=== PATIENT | female | born 2005 | race Caucasian/White ===

== ENCOUNTER 2025-03-22 15:56 | Emergency (ER) | payer BC, SELFPAY ==
[2025-03-22 16:02] VITALS: BP 125/80
[2025-03-22 16:38] LABS: Urine Albumin 3+ (Neg - Trace); Urine Bilirubin 1+ (Negative); Urine Character Cloudy (Clear); Urine Glucose Negative (Negative); Urine Ketone Negative (Negative); Urine Leukocyte 3+ (Negative); Urine Nitrite Positive (Negative); Urine Occult Blood 4+ (Negative); Urine Specific Gravity 1.015 (<1.030); Urine Urobilinogen 2+ (Neg - 1+)
[2025-03-22 16:39] LABS: HCG, Urine Qualitative Screen Negative; Urine Color Orange
[2025-03-22 16:54] LABS: Urine Squamous Cell 16-20 /LPF (Few)
[2025-03-22 16:55] LABS: Urine Bacteria Many (Negative); Urine White Cell >100 /HPF (0-5)
[2025-03-22] MEDS: KEFLEX 500 MG PO (19:52)
[2025-03-22] MEDS: DIFLUCAN 150 MG PO (19:52)
--- NOTE | 2025-03-22 22:34 | ED.GENMED ---
History of Present Illness
General
Chief Complaint: Urinary Symptoms
Source: patient
Exam Limitations: none
Time Seen by Provider: 03/22/25 18:00
Nursing documentation reviewed up to this point in time: agreed with
History of Present Illness
History of Present Illness:
Patient to ED wt complaint of urinary frequency, burning with urination,. Symptoms started this weekend. Denies fever/chills. Brought to ED by mother for eval.
Past History
Past History
ED Past Medical History: None
ED Past Surgical History: None
Review of Systems
Review of Systems
Allergies reviewed?: Yes
All Other Systems: ROS reviewed and negative except as documented in HPI and ROS
Constitutional: Reports no symptoms
EENT: Reports no symptoms
Respiratory: Reports no symptoms
Cardiac: Reports no symptoms
ABD/GI: Reports no symptoms
: Reports dysuria, frequency and urgency
Musculoskeletal: Reports no symptoms
Skin: Reports no symptoms
Neurological: Reports no symptoms
Psychiatric: Reports no symptoms
Phy Exam
General Physical Exam
General Presentation: well appearing and no apparent distress
General age: appears stated age
General Skin: warm and dry
General Habitus: normal
General Mental: alert
Gastrointestinal Exam
Gastrointestinal Exam: normal bowel sounds, non tender, soft, no organomegaly, no pulsatile mass, non distended and no cva tenderness
Musculoskeletal Exam
Musculoskeletal Exam: full ROM and neuro vasc intact
Skin Exam
Skin Exam: normal color, warm/dry and no rash
Psychiatric Exam
Psychiatric Exam: normal mood/affect
Course
Orders/Labs/Results
Orders:
Orders
03/22/25 16:05
Test Result ONCE
03/22/25 16:12
HCG, Urine Qualitative Screen Urgent
Date Specimen was Collected: 03/22/25
Time Specimen was Collected: 16:05
Urinalysis Reflex To Culture Urgent
Date Specimen was Collected: 03/22/25
Time Specimen was Collected: 16:05
Urine Microscopic Reflex Cult Urgent
Urine Culture Urgent
JAMES Source: U
Specimen Description:
Date Specimen was Collected: 03/22/25
Time Specimen was Collected: 16:05
03/22/25 19:32
Lidocaine 2% [Lidocaine Uro-Jet 2%] 1 syringe .ROUTE .[facility]
03/22/25 19:38
Add On- LAB Urgent
Tests Added?: GC/chlamydia urine
Cephalexin Monohydrate [Keflex] 500 mg PO NOW STA
Fluconazole [Diflucan] 150 mg PO NOW STA
03/22/25 19:49
Genital Culture Urgent
JAMES Source: Vagina
Specimen Description:
Date Specimen was Collected: 03/22/25
Time Specimen was Collected: 19:41
Abnormal Lab Results
03/22/25
16:12
Ur Occult Blood Reflex 4+ A
(Negative)
Urine Nitrite (Reflex) Positive A
(Negative)
Urine Bilirubin 1+ A
(Negative)
Urine Urobilinogen 2+ A
(Neg - 1+)
Leukocyte Esterase Rfl 3+ A
(Negative)
Urine RBC 7-10 A /HPF
(0-2)
Urine WBC (Reflex) >100 A /HPF
(0-5)
Urine Bacteria (Reflex) Many A
(Negative)
Urine Albumin (Reflex) 3+ A
(Neg - Trace)
Vital Signs
Initial and Last Documented VS:
Initial Vital Signs
Temp Pulse Resp BP Pulse Ox
98.2 F 106 20 125/80 98
03/22/25 16:02 03/22/25 16:02 03/22/25 16:02 03/22/25 16:02 03/22/25 16:02
Last Documented Vital Signs
Temp Pulse Resp BP Pulse Ox
98.2 F 106 20 125/80 98
03/22/25 16:02 03/22/25 16:02 03/22/25 16:02 03/22/25 16:02 03/22/25 16:02
*Critical Care Note
Total Time (30-74mins, 75-104mins- exclusive of procedures): Not Applicable
Update Note
Update Note:
Patient to ED with complaint of urinary frequency, pain. Symptoms started this weekend. UA reviewed, suspect UTI. Placed on Keflex. First dose given in ED. She is discharged home and will follow up with PCP. Given instructions on s/s to return
to ED and she is agreeable to plan
ED Attending Note
-
Portions of this chart may have been created with voice recognition software.� Occasional wrong word or��sound alike� substitutions may have occurred due to the inherent limitations of voice recognition software.
Discharge Plan
Departure
Patient Disposition: Home (Routine Discharge)
Date of Disposition: 03/22/25
Time of Disposition: 19:40
Patient with high blood pressure during this ER visit?: No
Condition: Good
Covid-19: Not Applicable
Discharge Problem:
UTI (urinary tract infection)
Instructions: Urinary Tract Infection, Adult (DC)
Prescriptions:
New
cephalexin 500 mg capsule
500 mg PO BID 7 Days Qty: 14 0RF
fluconazole 150 mg tablet
150 mg PO QWEEK 7 Days Qty: 1 0RF
Stand Alone Forms: Back to School
Activity Restrictions/Additional Instructions:
Follow up with your family doctor
Interventions
Interventions:
*Risk Screen - Suicide Last Done: 03/22/25 17:59
*General Assessment Last Done: 03/22/25 16:02
*Neglect/Abuse Screening Last Done: 03/22/25 17:59
*ED- Fall Risk Assessment Last Done: 03/22/25 17:59
*ED COVID-19 Vaccine History Last Done: 03/22/25 17:59
*Nursing Disposition Last Done: 03/22/25 20:04
ED-Female Genitourinary Assessment Last Done: 03/22/25 18:01
Discharge Date and Time
Discharge Date/Time: 03/22/25 20:05
Print Language: [place]
== END 2025-03-22 20:05 | disposition home or self-care (01) ==
LOC: EMR 15:56
PROVIDERS: EMERGENCY PHYSICIAN Emergency Medicine
DX: N39.0 Urinary tract infection, site not specified (principal)
CPT/HCPCS: 99283; 81003; 81015; 81025; 87070; 87086